=== PATIENT | male | born 1995 | race Caucasian/White ===

== ENCOUNTER 2018-09-17 14:25 | Emergency (ER) | payer OTHER ==
[~2018-09-17] VITALS: Ht 182.9 cm; Wt 122.6 kg
[~2018-09-17 14:25] MED LIST: CETI5TAB4 PO; DIPH25CA6 PO; HYDR28OI2 TP
[2018-09-17 14:56] VITALS: BP 133/89; PULSE 99; RESP 16; Ht 182.9 cm; Wt 122.6 kg
--- NOTE | 2018-09-17 20:55 | ERD ---
ER Documentation Chief Complaint Chief Complaint pt c/o itchy and discomforting palms x 3 days HPI 23-year-old male with no significant past medical history presents for itchy palms x3 days. The states both his hands on the [place] side are itching and has a burning sensation. He works in retail sales. Denies exposure to chemical. Denies fevers or chills. Denies chest pain or shortness of breath. Denies abdominal pain, nausea, vomiting. No other modifying factors noted, no treatments tried at home. ROS All systems reviewed and are negative except as per history of present illness. Medications Home Meds Active Scripts Diphenhydramine Hcl* (Diphenhydramine Hcl*) 25 Mg Capsule, 25 MG PO Q6 PRN for ITCHING, #30 CAP Prov:JACOB DOSHI DO 09/17/18 Cetirizine Hcl* (Zyrtec*) 5 Mg Tablet, 5 MG PO DAILY PRN for ITCHING, #30 TAB Prov:JACOB DOSHI DO 09/17/18 Hydrocortisone Acetate (Hydrocortisone) 28 Gm Oint...g., 28 GM TP BID PRN for itch for 5 Days, #1 TUBE Prov:JACOB DOSHI DO 09/17/18 Allergies Allergies: Coded Allergies: No Known Allergy (Unverified , 09/17/18) PMhx/Soc Medical and Surgical Hx: pt denies Medical Hx, pt denies Surgical Hx Hx Alcohol Use: No Hx Substance Use: Yes (Occasional marijuana) Hx Tobacco Use: No FmHx Family History: No coronary disease Physical Exam Vitals Vital Signs Date Temp Pulse Resp B/P (MAP) Pulse Ox O2 O2 Flow FiO2 Time Delivery Rate 09/17/18 98.1 99 16 133/89 98 14:56 (104) Physical Exam Const: No acute distress Head: Atraumatic Eyes: Normal Conjunctiva ENT: Normal External Ears, Nose and Mouth. Neck: Full range of motion. No meningismus. Resp: Clear to auscultation bilaterally Cardio: Regular rate and rhythm, no murmurs Abd: Soft, non tender, non distended. Normal bowel sounds Skin: Bilateral palms with mild erythema noted Back: No midline or flank tenderness Ext: No cyanosis, or edema Neur: Awake and alert Psych: Normal Mood and Affect Procedures/MDM Medical Decision Making: Differential diagnosis includes but not limited to allergic reaction, dermatitis, cellulitis, viral syndrome, fungal infection, erythrasma Patient appeared well on physical exam. No acute distress. Physical examination consistent with contact dermatitis Low suspicion for deep space infection, David Jay syndrome, toxic epidermal necrolysis Prescription(s): Patient given prescription for supportive medication(s). Patient advised to follow up with PCP in 1-2 days. Patient advised to return to ED for new or worsening symptoms. Patient stable on discharge from the ED. Disclaimer: Inadvertent spelling and grammatical errors are likely due to EHR/dictation software use and do not reflect on the overall quality of patient care. Also, please note that the electronic time recorded on this note does not necessarily reflect the actual time of the patient encounter. Departure Diagnosis: Primary Impression: Itching Condition: Fair Patient Instructions: Self-Care for Skin Rashes Additional Instructions: Call your primary care doctor TOMORROW for an appointment during the next 1-2 days.See the doctor sooner or return here if your condition worsens before your appointment time. JACOB DOSHI DO Sep 17, 2018 20:55
== END 2018-09-17 15:49 | disposition home or self-care (01) ==
LOC: E/R 14:25
DX: L29.9 Pruritus, unspecified (principal)
CPT/HCPCS: 99283